=== PATIENT | male | born 2000 | race Hispanic/Latino ===

== ENCOUNTER 2022-11-22 13:25 | Inpatient (IN) | payer OTHER, SELFPAY ==
[2022-11-22] MEDS ORDERED: Midazolam HCl 2 mg/2 ml Vial ONE (15:08)
[2022-11-22] MEDS ORDERED: fentaNYL PF 100 MCG/2 ML SYRINGE ONE (15:09)
[2022-11-22] MEDS ORDERED: Mineral Oil Sterile 10 ML VIAL ONE (15:17)
[2022-11-22] MEDS ORDERED: Betamet Acet/Betamet Na Ph 30 MG/5 ML VIAL ONE (15:17)
[2022-11-22] MEDS ORDERED: Thrombin 5000 UNITS/5 ML VIAL ONE (15:17)
[2022-11-22] MEDS ORDERED: Bupivacaine PF 0.5% 30 ML VIAL ONE (15:17)
[2022-11-22] MEDS ORDERED: Bacitracin Zinc Ointment 30 gm TUBE ONE (15:17)
[2022-11-22] MEDS ORDERED: Lidocaine 2% 6 ML SYR ONE (15:33)
[2022-11-22] MEDS ORDERED: CEFAZOLIN 2 GM VIAL ONE (15:34)
[2022-11-22] MEDS ORDERED: Sodium Chloride 0.9% 100 ML ONE (15:34)
[2022-11-22] MEDS ORDERED: Succinylcholine Chloride 100 MG/5 ML SYRINGE FS ONE (15:38)
[2022-11-22] MEDS ORDERED: Lidocaine 1% PF 5 ML VIAL ONE (15:38)
[2022-11-22] MEDS ORDERED: Ondansetron PF 4 MG/2 ML Vial ONE ×2 (15:38→18:08)
[2022-11-22] MEDS ORDERED: PROPOFOL 200 MG/20 ML VIAL ONE (15:38)
[2022-11-22] MEDS ORDERED: Dexamethasone 20 MG/5 ML VIAL ONE (15:38)
[2022-11-22] MEDS ORDERED: Ondansetron PF 4 MG/2 ML Vial IVP PRN (15:44)
[2022-11-22] MEDS ORDERED: HYDROcodone/Acetaminophen 5/325 mg Tablet PO PRN (15:44)
[2022-11-22] MEDS ORDERED: TETANUS, DIPHTHERIA TOX,ADULT (TDVAX) 0.5 ML VIAL IM ONE (15:44)
[2022-11-22] MEDS ORDERED: Fentanyl 100 MCG/2 ML VIAL SLOW IVP PRN (15:44)
[2022-11-22] MEDS ORDERED: Acetaminophen 325 MG TAB PO PRN (15:44)
[2022-11-22] MEDS ORDERED: Morphine 4 MG/ML VIAL SLOW IVP PRN (15:44)
[2022-11-22] MEDS ORDERED: Communication Order-Pharmacy FS SCH (15:45)
[2022-11-22] MEDS ORDERED: Promethazine HCl 25 MG/ML VIAL IM PRN (16:20)
[2022-11-22] MEDS ORDERED: Ketorolac Tromethamine 30 MG/ML VIAL IVP PRN (16:20)
[2022-11-22] MEDS ORDERED: Ondansetron HCl/PF 4 MG/2 ML Vial IVP PRN (16:20)
[2022-11-22] MEDS ORDERED: Meperidine HCl/PF 25 MG/ML VIAL SLOW IVP PRN ×2 (16:20)
[2022-11-22] MEDS: Aspirin 81 mg Enteric Coated Tablet PO SCH (21:01)
[2022-11-22 21:53] VITALS: BMI 27.1
[2022-11-23] MEDS: HYDROcodone/Acetaminophen 10/325 mg Tablet PO PRN ×2 (05:11→15:49)
[2022-11-23 06:31] LABS: #Eosinphils 0.1 thou/uL (0.0-0.7); #Lymphocytes 1.3 thou/uL (1.20-3.40); #Monocytes 0.9 thou/uL (0.11-0.59); #Neutrophils 8.3 thou/uL (1.40-6.50); %Basophils 0.3 % (0.0-1.0); %Eosinophils 0.7 % (0.0-10.0); %Monocytes 8.7 % (0.0-10.0); %Neutrophils 78.4 % (42.0-75.0); Hemoglobin 15.6 g/dL (14.0-18.0); Mean Corpuscular HGB CONC 34.4 g/dL (32.0-36.0); Mean Corpuscular Hemoglobin 30.2 pg (27.0-31.0); Mean Corpuscular Volume 87.8 fl (78.0-98.0); Mean Platelet Volume 9.3 fL (7.4-10.4); Platelet Count 194 10x3/uL (130-400); RBC Distribution Width 11.9 % (11.5-14.5); Red Blood Cell (RBC) Count 5.15 mill/uL (4.70-6.10); White Blood Cell (WBC) Count 10.5 10x3/uL (4.8-10.8)
[2022-11-23] MEDS: Aspirin 81 mg Enteric Coated Tablet PO SCH (08:12)
[2022-11-23 20:01] VITALS: BP 133/69; TEMP 98.4
== END 2022-11-23 20:00 | disposition home or self-care (01) | DRG 501 ==
LOC: SDC 13:25 → SURG B 15:44
PROVIDERS: ADMIT Orthopaedic Surgery Hand Surgery; ATTEND Orthopaedic Surgery Hand Surgery
PROC: 0MQ40ZZ Repair Left Elbow Bursa and Ligament, Open Approach (ICD-10-PCS; principal; 2022-11-22)
PROC: 0PSS04Z Reposition Left Thumb Phalanx with Internal Fixation Device, Open Approach (ICD-10-PCS; 2022-11-22)
PROC: 0HRGX73 Replacement of Left Hand Skin with Autologous Tissue Substitute, Full Thickness, External Approach (ICD-10-PCS; 2022-11-22)
PROC: 0HBEXZZ Excision of Left Lower Arm Skin, External Approach (ICD-10-PCS; 2022-11-22)
DX: S53.32XA Traumatic rupture of left ulnar collateral ligament, initial encounter (principal); S62.522B Displaced fracture of distal phalanx of left thumb, initial encounter for open fracture; X58.XXXA Exposure to other specified factors, initial encounter; Z20.822 Contact with and (suspected) exposure to COVID-19
CPT/HCPCS: 36415; 85025; C1713; C1894; J0702; J1100; J1642; J2250; J2405; J2704; J3490; S0020; U0003; U0005

== ENCOUNTER 2024-10-05 01:51 | Emergency (ER) | payer SELFPAY ==
[2024-10-05] MEDS ORDERED: predniSONE 20 MG TAB ONE (02:47)
[2024-10-05] MEDS ORDERED: diphenhydrAMINE 12.5 MG/5 ML UDCUP ONE (02:47)
== END 2024-10-05 02:59 | disposition home or self-care (01) ==
LOC: ERS 01:51
DX: L50.0 Allergic urticaria (principal)
CPT/HCPCS: 99282; J7512; Q0163